=== PATIENT | female | born 1980 | race Caucasian/White ===

== ENCOUNTER 2024-09-03 09:20 | Inpatient (IN) | payer OTHER, SELFPAY ==
[2024-09-03] MEDS ORDERED: Morphine 4 MG/ML VIAL ONE ×2 (09:38→12:02)
[2024-09-03] MEDS ORDERED: Glucagon 1 MG/ML KIT IM PRN (11:58)
[2024-09-03] MEDS ORDERED: Insulin Regular, Human 100 UNIT/ML 10 ML VIAL SC PRN (11:58)
[2024-09-03] MEDS ORDERED: Dextrose 5% in Water 1,000 ML IV PRN (11:58)
[2024-09-03] MEDS ORDERED: Dextrose 50% Abboject 50 ML SYRINGE SLOW IVP PRN (11:58)
[2024-09-03] MEDS: Sodium Chloride 0.9% 1,000 ML IV SCH (13:18)
[2024-09-03] MEDS: Piperacillin/Tazobactam 3.375 GM in Sodium Chloride 0.9% 100 ML IVPB SCH ×2 (13:20→16:42)
[2024-09-03] MEDS ORDERED: Piperacillin/Tazobactam 2.25 GM in Sodium Chloride 0.9% 100 ML IVPB SCH (14:00)
[2024-09-03 15:16] VITALS: BMI 23.0
[2024-09-03] MEDS ORDERED: hydrALAZINE 20 MG/ML VIAL SLOW IVP PRN (16:51)
[2024-09-03] MEDS: Ondansetron PF 4 MG/2 ML Vial IVP PRN (17:07)
[2024-09-03] MEDS: traMADol HCl 50 MG TAB PO PRN (18:54)
[2024-09-03] MEDS: Acetaminophen 325 MG TAB PO PRN (22:25)
[2024-09-04 06:06] LABS: #Basophils 0.04 10x3/uL (0.0-0.2); %Basophils 0.2 % (0.0-1.0); %Eosinophils 0.8 % (0.0-10.0); %Lymphocytes 5.4 % (21.0-51.0); %Monocytes 7.4 % (0.0-10.0); %Neutrophils 85.7 % (42.0-75.0); Hematocrit 35.1 % (36.0-47.0); Hemoglobin 11.8 g/dL (12.0-16.0); Mean Corpuscular HGB CONC 33.6 g/dL (32.0-36.0); Mean Corpuscular Hemoglobin 28.8 pg (27.0-31.0); Mean Corpuscular Volume 85.6 fL (78.0-98.0); Platelet Count 316 10x3/uL (130-400); RBC Distribution Width 13.3 % (11.5-14.5)
[2024-09-04 06:40] LABS: ALT (SGPT) 22 U/L (8-55); AST (SGOT) 20 U/L (5-34); Albumin 3.5 g/dL (3.5-5.0); Alkaline Phosphatase 115 U/L (40-110); Anion Gap 13 mmol/L (10-20); BUN (Urea Nitrogen) 7 mg/dL (7.0-18.7); Bilirubin, Total 0.4 mg/dL (0.2-1.2); Calc. Creatinine Clearance 91 mL/min (70-130); Calcium 9.2 mg/dL (7.8-10.44); Carbon Dioxide 22 mmol/L (22-29); Chloride 101 mmol/L (98-107); Estimated GFR 104; Globulin 3.6 g/dL (2.4-3.5); Glucose 121 mg/dL (70-105); Potassium 3.9 mmol/L (3.5-5.1); Protein, Total 7.1 g/dL (6.0-8.3); Sodium 132 mmol/L (136-145)
[2024-09-04] MEDS: Famotidine/PF 20 mg/2ml Vial SLOW IVP SCH (08:57)
[2024-09-04] MEDS ORDERED: Morphine 2 MG/ML VIAL ONE (12:27)
[2024-09-04] MEDS ORDERED: Bupivacaine 0.25% HCL 30 ML VIAL ONE (18:21)
[2024-09-04] MEDS ORDERED: EPINEPHrine 1 MG/ML VIAL ONE (18:21)
[2024-09-04] MEDS ORDERED: PROPOFOL 20 ML ONE (18:23)
[2024-09-04] MEDS ORDERED: Rocuronium Bromide 10 MG/ML (10ML VIAL) ONE (18:23)
[2024-09-04] MEDS ORDERED: fentaNYL PF 100 MCG/2 ML SYRINGE ONE (18:23)
[2024-09-04] MEDS ORDERED: Lidocaine 1% PF 5 ML VIAL ONE (18:23)
[2024-09-04] MEDS: Indocyanine Green 25 MG/10 ML VIAL IVP SCH (18:33)
[2024-09-04] MEDS ORDERED: Dexamethasone 20 MG/5 ML VIAL ONE (19:17)
[2024-09-04] MEDS ORDERED: Ondansetron PF 4 MG/2 ML Vial ONE (19:17)
[2024-09-04] MEDS ORDERED: Ketorolac Tromethamine 30 MG (1 mL) VIAL ONE (19:17)
[2024-09-04] MEDS ORDERED: Promethazine HCl 25 MG/ML VIAL IM PRN (19:56)
[2024-09-04] MEDS ORDERED: Ondansetron HCl/PF 4 MG/2 ML Vial IVP PRN (19:56)
[2024-09-04] MEDS ORDERED: HYDROmorphone 2 MG/ML VIAL SLOW IVP PRN (19:56)
[2024-09-04] MEDS ORDERED: PACU-Morphine 4MG/ML VIAL SLOW IVP PRN (19:56)
[2024-09-04] MEDS ORDERED: SUGAMMADEX SODIUM 200 MG/2 ML VIAL ONE (20:01)
[2024-09-04] MEDS ORDERED: HYDROcodone/Acetaminophen 10/325 mg Tablet PO PRN (20:29)
[2024-09-04] MEDS ORDERED: fentaNYL 50 mcg/mL 1 mL Vial ONE (21:28)
[2024-09-05 05:20] LABS: #Basophils Less than 0.03 10x3/uL (0.0-0.2); #Eosinophils Less than 0.03 10x3/uL (0.0-0.7); %Basophils 0.1 % (0.0-1.0); %Eosinophils 0.1 % (0.0-10.0); %Lymphocytes 2.6 % (21.0-51.0); %Monocytes 2.9 % (0.0-10.0); %Neutrophils 93.8 % (42.0-75.0); Hematocrit 32.5 % (36.0-47.0); Hemoglobin 10.6 g/dL (12.0-16.0); Mean Corpuscular HGB CONC 32.6 g/dL (32.0-36.0); Mean Corpuscular Hemoglobin 28.8 pg (27.0-31.0); Mean Corpuscular Volume 88.3 fL (78.0-98.0); Mean Platelet Volume 10.5 fL (7.4-10.4); Platelet Count 245 10x3/uL (130-400); RBC Distribution Width 13.9 % (11.5-14.5); Red Blood Cell (RBC) Count 3.68 mill/uL (4.20-5.40)
[2024-09-05 06:05] LABS: ALT (SGPT) 25 U/L (8-55); AST (SGOT) 28 U/L (5-34); Alkaline Phosphatase 100 U/L (40-110); Anion Gap 14 mmol/L (10-20); BUN (Urea Nitrogen) 9 mg/dL (7.0-18.7); Bilirubin, Total 0.2 mg/dL (0.2-1.2); Calc. Creatinine Clearance 81 mL/min (70-130); Carbon Dioxide 18 mmol/L (22-29); Chloride 109 mmol/L (98-107); Estimated GFR 91; Globulin 3.7 g/dL (2.4-3.5); Glucose 159 mg/dL (70-105); Potassium 4.5 mmol/L (3.5-5.1); Protein, Total 6.7 g/dL (6.0-8.3); Sodium 136 mmol/L (136-145)
[2024-09-05 07:53] VITALS: BP 125/74; TEMP 98
== END 2024-09-05 10:55 | disposition home or self-care (01) | DRG 419 ==
LOC: ERS 09:20 → SURG A 12:01
PROVIDERS: ADMIT Surgery; ATTEND Surgery
PROC: 0FT44ZZ Resection of Gallbladder, Percutaneous Endoscopic Approach (ICD-10-PCS; principal; 2024-09-04)
PROC: 8E0W4CZ Robotic Assisted Procedure of Trunk Region, Percutaneous Endoscopic Approach (ICD-10-PCS; 2024-09-04)
DX: K81.0 Acute cholecystitis (principal)
CPT/HCPCS: 36415; 76705; 78226; 80053; 85025; 88304; 96374; 96376; A6258; A9537; C1889; J0171; J0665; J1100; J1885; J2272; J2405; J2543; J2704; J3010; J3490; J7030; S2900